=== PATIENT | female | born 1965 | race Caucasian/White ===

== ENCOUNTER 2022-10-26 16:25 | Outpatient (CLI) | payer OTHER, SELFPAY | END 2022-10-26 16:26 | disposition home or self-care (01) | PROVIDERS: PCP Family Medicine; Visit Provider Nurse Practitioner Family | DX: R82.90 Unspecified abnormal findings in urine (principal); R30.0 Dysuria | CPT/HCPCS: 87086 ==

== ENCOUNTER 2022-11-15 14:30 | Outpatient (CLI) | payer BC, SELFPAY ==
[2022-11-15 17:35] LABS: Albumin* 4.6 g/dL (3.3-5.0); Chloride* 104 mmol/L (96-114)
[2022-11-15 17:36] LABS: Sodium* 137 mmol/L (135-149)
[2022-11-15 17:38] LABS: Alkaline Phosphatase* 51 U/L (40-150); Aspartate Amino Transferase* 31 U/L (12-35); Bilirubin Total* 0.6 mg/dL (0.1-1.5); Blood Urea Nitrogen* 14 mg/dL (7-30); Carbon Dioxide* 27 mmol/L (20-32); Cholesterol* 174 mg/dL (90-199); Creatinine* 0.7 mg/dL (0.5-1.5); Estimated Glomerular Filt Rate 102 ml/min; Glucose* 81 mg/dL (60-115); Total Protein* 7.2 g/dL (6.0-8.3); Triglycerides* 37 mg/dL (40-149)
[2022-11-15 17:39] LABS: Alanine Aminotransferase* 23 U/L (4-35); Calcium* 9.3 mg/dL (8.4-10.6)
[2022-11-15 17:47] LABS: HDL Cholesterol* 119 mg/dL (>=50); LDL Cholesterol Calculated 48 mg/dL (<100)
== END 2022-11-15 14:31 | disposition home or self-care (01) ==
PROVIDERS: PCP Family Medicine; Visit Provider Family Medicine
DX: Z01.419 Encounter for gynecological examination (general) (routine) without abnormal findings (principal); Z13.6 Encounter for screening for cardiovascular disorders
CPT/HCPCS: 80053; 80061